=== PATIENT | male | born 1990 | race Caucasian/White ===

== ENCOUNTER 2018-12-02 15:14 | Observation (INO) ==
[2018-12-02] MEDS ORDERED: *HR* LORazepam 2 MG/ML VIAL IVP ONE (15:19)
[2018-12-02] MEDS ORDERED: *HR* LORazepam 2 MG/ML VIAL ONE (15:29)
[2018-12-02] MEDS ORDERED: *HR* LORazepam 2 MG/ML VIAL IVP STA (15:30)
[2018-12-02] MEDS ORDERED: 0.9 % Sodium Chloride 1,000 ML IVC ONE ×2 (15:31→15:35)
--- NOTE | 2018-12-02 15:49 | Emergency Department Note ---
Disposition Clinical Impression: Methamphetamine intoxication, Dehydration Disposition: Admitted As Inpatient Condition: Fair Time of Disposition: 19:21 General Adult HPI - General Chief complaint: ED Arrhythmia/Palpitations Stated complaint: ORAL Time Seen by Provider: 12/02/18 15:19 Source: patient, EMS Mode of arrival: EMS Limitations: no limitations Nursing Notes Reviewed: Yes Vital Signs Reviewed: Yes - History of Present Illness HPI Narrative: 28M that reports hx of methamphetamine use today and now has tachycardia and some shortness of breath. He also reports occasional marijuana use but none today. Pt presents with HR >160. Pain Scale: 0 - Related Data Home Medications Medication Instructions Recorded Confirmed No Known Home Drugs 10/29/14 10/29/14 Previous Rx's Medication Instructions Recorded Naproxen [Naprosyn] 500 mg PO BID PRN #20 tablet 10/29/14 TraMADol [Ultram] 50 mg PO Q4HR PRN #10 tablet 10/29/14 Azithromycin [Azithromycin 6-Tab 250 mg PO DAILY #6 tab 03/14/15 Pack] Azithromycin [Zithromax] 250 mg PO DAILY #5 tablet 04/22/16 Ondansetron [Zofran] 8 mg PO Q8HR PRN #10 tablet 04/22/16 Promethazine/Phenyleph/Codeine 10 ml PO Q4-6H PRN #120 ml 04/22/16 [Promethazine Vc-Codeine Syrup] GuaiFENesin ER [Mucinex] 600 mg PO BID PRN #20 tbbp.12hr 07/03/16 Ondansetron ODT [Zofran ODT] 4 mg SL Q4HR PRN #15 tab.rapdis 07/03/16 Allergies Allergy/AdvReac Type Severity Reaction Status Date / Time Cefaclor [From Ceclor] AdvReac Nausea Verified 12/25/17 02:05 Limitations: ROS unobtainable due to patients medical condition Past Medical History - Past Medical History Attestation: Yes The following information was validated with the patient. Medical history: Reports: no medical history Surgical history: Reports: other Psychiatric history: Reports: anxiety, bipolar, depression, schizophrenia - Social History Smoking Status: Former smoker Smokeless Tobacco Status: Yes Alcohol use: Reports: heavy Drug use: Reports: cocaine, marijuana, methamphetamine Physical Exam General: Appears agitated and anxious. Well developed, well nourished. Head: atraumatic, normocephalic. ENT: No conjunctival injection, no scleral icterus. PERRLA. EOMI. Oropharynx non- erythematous. mucous membranes dry. Neuro: unable to assess. Pulm: Lungs CTAB A/P. No wheezes, rales, ronchi. Cardio: Tachycardic. Chest not tender to palpation. Abd: Soft, non-distended. Normoactive bowel sounds. Non-tender to palpation. No guarding. Non rigid. Extremities: Radial pulses 2+ bridgette, dorsalis pedis/posterior tibialis 2+ bridgette. No LE edema. No cyanosis, clubbing. Skin: Both knees have superficial abrasions with some active bleeding, but appears mostly well controlled. Pt reports he fell on pavement today. Psych: Agitated but pleasant. - General Limitations: no limitations General appearance: alert, in no apparent distress Course Vital Signs Temperature 98.7 F 12/02/18 15:21 Pulse Rate 157 12/02/18 15:21 Respiratory Rate 22 12/02/18 15:21 Blood Pressure 171/144 12/02/18 15:21 O2 Sat by Pulse Oximetry 98 12/02/18 15:21 Temperature 98.7 F 12/02/18 15:21 Pulse Rate 81 12/02/18 17:07 Respiratory Rate 20 12/02/18 17:07 Blood Pressure 111/66 12/02/18 17:07 O2 Sat by Pulse Oximetry 97 12/02/18 17:07 Oxygen Delivery Oxygen Delivery Room Air Medical Decision Making - [facility] Narrative Medical decision making narrative: Pt presents after using methamphetamine with chest pressure and fast heart rate. We will administer 2mg IV Ativan. Pt continued to be tachycardic in the 130's, will administer 4mg of IV Ativan. 1606: Pt is sleeping comfortably, with HR 93 with BP 108/69. 1920: Pt still sleeping comfortable, and minimally responsive but protecting his own airway. Pt was admitted to the hospitalist, Dr. Soto who agreed to accept the patient to his service. Pt was stable at time of disposition. - Medical Records Medical records reviewed: Yes I reviewed the patient's medical records. - Lab Data Lab results reviewed: Yes I reviewed the patient's lab results. Result diagrams: 12/02/18 15:21 Lab Results 10/04/19 Range/Units 15:21 Sodium 139 (136-145) mEq/L Potassium 3.3 L (3.5-5.1) mEq/L Chloride 101 (98-107) mEq/L Carbon Dioxide 10 L* (23-29) mEq/L BUN 8 (6-20) mg/dL Creatinine 1.13 (0.70-1.30) mg/dL Est GFR ( Amer) > 60 (> 60) Est GFR (Non-Af Amer) > 60 (> 60) BUN/Creatinine Ratio 7 (6-26) Glucose 193 H (70-105) mg/dL Calculated Osmolality 292 (280-300) Calcium 10.2 (8.6-10.3) mg/dL Creatine Kinase 204 (30-223) Units/L Troponin I < 0.03 (< 0.04) ng/mL - Radiology Data Radiology results reviewed: Yes I reviewed the patient's radiology results. Chest X-Ray 12/02/18 15:59 IMPRESSION: Slight to mild pulmonary vascular congestion questioned. Low lung volumes. D/ / Andres Pepper MD / Andres Pepper MD Interpreting Provider: Andres Pepper MD - EKG Data EKG #1 EKG attestation: Yes I reviewed and interpreted this EKG. EKG results narrative: Heart rate 161, rhythm sinus tachycardia, axis normal. TN and QRS within normal limits but QTc prolonged at 559. The T waves in lead V2 are hyperacute. However the hyperacute T waves are isolated. No old EKG available for comparison. EKG #2 EKG attestation: Yes I reviewed and interpreted this EKG. EKG results narrative: HR 68, rhythm sinus, axis normal. All intervals within normal limits. There is very mild ST segment elevation in lead V2 which could be benign early rep olarization. Patient is not complaining of any chest pain. This EKG is much improved from earlier EKG.
[2018-12-02 16:28] LABS: BUN/Creatinine Ratio 7 (6-26); Blood Urea Nitrogen 8 mg/dL (6-20); Calcium 10.2 mg/dL (8.6-10.3); Carbon Dioxide 10 mEq/L (23-29); Chloride 101 mEq/L (98-107); Creatine Kinase 204 Units/L (30-223); Glucose 193 mg/dL (70-105); Osmolality,Calculated 292 (280-300); Potassium 3.3 mEq/L (3.5-5.1); Sodium 139 mEq/L (136-145); Troponin I < 0.03 ng/mL (< 0.04); eGFR For African Americans > 60 (> 60); eGFR For Non-African Americans > 60 (> 60)
--- NOTE | 2018-12-02 17:30 | Emergency Department Note ---
Disposition Clinical Impression: Methamphetamine intoxication, Dehydration Disposition: Admitted As Inpatient Condition: Fair Referrals: NONE,PCP [Primary Care Provider] - Forms: ED Satisfaction Letter Time of Disposition: 17:20 General Adult HPI - General Chief complaint: ED Arrhythmia/Palpitations Stated complaint: ORAL Time Seen by Provider: 12/02/18 15:19 Source: patient, EMS Mode of arrival: EMS Limitations: no limitations - History of Present Illness Pain Scale: 0 - Related Data Home Medications Medication Instructions Recorded Confirmed No Known Home Drugs 10/29/14 10/29/14 Previous Rx's Medication Instructions Recorded Naproxen [Naprosyn] 500 mg PO BID PRN #20 tablet 10/29/14 TraMADol [Ultram] 50 mg PO Q4HR PRN #10 tablet 10/29/14 Azithromycin [Azithromycin 6-Tab 250 mg PO DAILY #6 tab 03/14/15 Pack] Azithromycin [Zithromax] 250 mg PO DAILY #5 tablet 04/22/16 Ondansetron [Zofran] 8 mg PO Q8HR PRN #10 tablet 04/22/16 Promethazine/Phenyleph/Codeine 10 ml PO Q4-6H PRN #120 ml 04/22/16 [Promethazine Vc-Codeine Syrup] GuaiFENesin ER [Mucinex] 600 mg PO BID PRN #20 tbbp.12hr 07/03/16 Ondansetron ODT [Zofran ODT] 4 mg SL Q4HR PRN #15 tab.rapdis 07/03/16 Allergies Allergy/AdvReac Type Severity Reaction Status Date / Time Cefaclor [From Ceclor] AdvReac Nausea Verified 12/25/17 02:05 Past Medical History - Past Medical History Medical history: Reports: no medical history Surgical history: Reports: other Psychiatric history: Reports: anxiety, bipolar, depression, schizophrenia - Social History Smoking Status: Former smoker Smokeless Tobacco Status: Yes Alcohol use: Reports: heavy Drug use: Reports: cocaine, marijuana, methamphetamine Physical Exam - General Limitations: no limitations General appearance: alert, in no apparent distress Course Vital Signs Temperature 98.7 F 12/02/18 15:21 Pulse Rate 157 12/02/18 15:21 Respiratory Rate 22 12/02/18 15:21 Blood Pressure 171/144 12/02/18 15:21 O2 Sat by Pulse Oximetry 98 12/02/18 15:21 Temperature 98.7 F 12/02/18 15:21 Pulse Rate 81 12/02/18 17:07 Respiratory Rate 20 12/02/18 17:07 Blood Pressure 111/66 12/02/18 17:07 O2 Sat by Pulse Oximetry 97 12/02/18 17:07 Oxygen Delivery Oxygen Delivery Room Air Medical Decision Making - Lab Data Result diagrams: 12/02/18 15:21 Lab Results 12/02/18 Range/Units 15:21 Sodium 139 (136-145) mEq/L Potassium 3.3 L (3.5-5.1) mEq/L Chloride 101 (98-107) mEq/L Carbon Dioxide 10 L* (23-29) mEq/L BUN 8 (6-20) mg/dL Creatinine 1.13 (0.70-1.30) mg/dL Est GFR ( Amer) > 60 (> 60) Est GFR (Non-Af Amer) > 60 (> 60) BUN/Creatinine Ratio 7 (6-26) Glucose 193 H (70-105) mg/dL Calculated Osmolality 292 (280-300) Calcium 10.2 (8.6-10.3) mg/dL Creatine Kinase 204 (30-223) Units/L Troponin I < 0.03 (< 0.04) ng/mL Attestation Statement - Attestation Attestation: I examined this patient and my medical decision-making was reviewed with the Resident Physician. I agree with the documented findings, disposition and treatment plan as described except to the extent set forth below. Patient has reportedly been on a 4 day methamphetamine binge. Presents agitated, tachycardic, short of breath. I was present for the resident's EKG interpretation. He had sinus tachycardia in the 160s. He was treated with fluids and Ativan while in the emergency department. His heart rate did come down. His CO2 on his basic metabolic panel was 10. He will be admitted for observation and continued hydration. CPK was in the 200s. Was accepted the patient, requested a urine drug screen, which was added.
[2018-12-02] MEDS ORDERED: Naloxone 0.4 MG/ML INJ IVP PRN (17:31)
--- NOTE | 2018-12-02 18:08 | Internal Med History&Physical ---
Date of Encounter: 12/02/18 Time of Encounter: 18:00 Internal Medicine - H&P: HPI Chief complaint: Methamphetamine abuse, tachycardia Admitted From: Emergency Dept Plans for Post Hospital Care: Home History of present illness: Mr. Mccormick is a 28 year old male patient presented to the ER with some complaints of shortness of breath reporting that he had been on a methamphetamine binge for the past 4 days. Presently patient is very somnolent and difficult to awake. He did receive Ativan in the ER. History has therefore been obtained from ED records. Patient apparently reported that he had used methamphetamine today and also has a history of schizophrenia. He also reported occasional marijuana use. In the ER, he was noted to be very tachycardic with heart rate in the 160s. He received Ativan and IV fluids and his heart rate has since improved. Past Med Surg Social Fam HX - Past Medical History Medical history: no medical history Psychiatric history: anxiety, bipolar, depression, schizophrenia - Past Surgical History Surgical History: other Additional surgical history: Dental surgery - Social History Smoking Status: Former smoker Smokeless Tobacco Status: Yes Alcohol use: heavy Drug use: cocaine, marijuana, methamphetamine - Additional Family History Additional family history: Unable to obtain at this time Internal Medicine - H&P: Meds Naproxen [Naprosyn] 500 mg PO BID PRN #20 tablet 10/29/14 [Rx] No Known Home Drugs 10/29/14 [History] TraMADol [Ultram] 50 mg PO Q4HR PRN #10 tablet 10/29/14 [Rx] Azithromycin [Azithromycin 6-Tab Pack] 250 mg PO DAILY #6 tab 03/14/15 [Rx] Azithromycin [Zithromax] 250 mg PO DAILY #5 tablet 04/22/16 [Rx] Ondansetron [Zofran] 8 mg PO Q8HR PRN #10 tablet 04/22/16 [Rx] Promethazine/Phenyleph/Codeine [Promethazine Vc-Codeine Syrup] 10 ml PO Q4-6H PRN #120 ml 04/22/16 [Rx] GuaiFENesin ER [Mucinex] 600 mg PO BID PRN #20 tbbp.12hr 07/03/16 [Rx] Ondansetron ODT [Zofran ODT] 4 mg SL Q4HR PRN #15 tab.rapdis 07/03/16 [Rx] Allergy/AdvReac Type Severity Reaction Status Date / Time Cefaclor [From Ceclor] AdvReac Nausea Verified 12/25/17 02:05 ROS unobtainable: due to mental status (Patient very somnolent and difficult to awake) All Systems PM: A 10-system review of systems was performed and is negative for pertinent findings except as documented above in the HPI. - Constitutional Vitals: Temp Pulse Resp BP Pulse Ox 98.7 F 81 20 111/66 97 12/02/18 15:21 12/02/18 17:07 12/02/18 17:07 12/02/18 17:07 12/02/18 17:07 Exam: General: Patient is somnolent, difficult to awake Respiratory: Good respiratory effort. Normal breath sounds. No wheezing or crackles. Cardiovascular: Regular rate and rhythm. s1 and s2 normal No clicks, rubs, gallops, or murmurs. No pedal edema Abdomen: Abdomen is soft, nontender. Bowel sounds are present Musculoskeletal: Spontaneously moving all extremities Skin: Abrasion wounds on bilateral knees Neuro: Somnolent. Neuro examination unable to be completed at this time as patient difficult to awake Psych: Unable to assess at this time Internal Med - H&P Results - Labs CBC & Chem 7: 12/02/18 15:21 Labs: BMP 12/02/18 15:21 Sodium 139 Potassium 3.3 L Chloride 101 Carbon Dioxide 10 L* BUN 8 Creatinine 1.13 Glucose 193 H Calcium 10.2 Cardiac Enzymes 12/02/18 Range/Units 15:21 Troponin I < 0.03 (< 0.04) ng/mL - Impressions ITS Impressions Chest X-Ray 12/02/18 15:59 IMPRESSION: Slight to mild pulmonary vascular congestion questioned. Low lung volumes. D/ / Andres Pepper MD / Andres Pepper MD Interpreting Provider: Andres Pepper MD - Assessment and Plan (1) Methamphetamine intoxication Current Visit: Yes Status: Acute (2) Metabolic acidosis Current Visit: Yes Status: Acute - Summary of Assessment and Plan Summary of Assessment and Plan: Methamphetamine intoxication: Patient reportedly on methamphetamine binge over the past 4 days. Received 6 mg of Ativan prior to my arrival in the ER and has been somnolent since then. Will monitor her neuro function. IV hydration. Monitor urine output. CPK levels are normal. Will trend. knockup worker consult. Metabolic acidosis: Likely due to dehydration and drug abuse. Will monitor renal function. IV hydration. Moderate risk for complications. - Time Spent With Patient Total time spent is greater than 50% in coordination of care (as documented) at patient's floor/unit and/or counseling patient:
[2018-12-02] MEDS: 0.9 % Sodium Chloride 1,000 ML IVC ONE ×2 (19:18→20:49)
[2018-12-02] MEDS: Ringers Solution, Lactated 1,000 ML IVC SCH (20:49)
[2018-12-03 04:41] LABS: Basophils # 0.1 K/mcL (0.0-0.2); Basophils % 0.8 %; Eosinophils # 0.9 K/mcL (0.0-0.6); Eosinophils % 9.5 %; Hematocrit 41.6 % (37.5-50.1); Hemoglobin 13.5 g/dL (12.9-16.9); Immature Granulocytes % 0.3 % (0-4); Lymphocytes # 2.3 K/mcL (0.6-4.6); Lymphocytes % 24.2 %; Mean Corpuscular HGB Conc 32.5 g/dL (31.6-35.5); Mean Corpuscular Hemoglobin 28.8 pg (28.0-33.3); Mean Corpuscular Volume 88.9 fL (83.0-100.0); Mean Platelet Volume 9.8 fL (9.4-12.4); Monocytes # 0.8 K/mcL (0.0-1.3); Monocytes % 8.4 %; Neutrophils # 5.3 K/mcL (1.6-8.9); Platelet Count 241 K/mcL (140-400); Red Blood Count 4.68 M/mcL (4.19-5.50); Red Cell Distribution Width 13.4 % (11.5-14.5); Segmented Neutrophils % 56.8 %; White Blood Count 9.3 K/mcL (4.3-11.1)
[2018-12-03] MEDS: Ringers Solution, Lactated 1,000 ML IVC SCH (04:53)
[2018-12-03 05:00] LABS: BUN/Creatinine Ratio 8 (6-26); Blood Urea Nitrogen 6 mg/dL (6-20); Calcium 8.7 mg/dL (8.6-10.3); Carbon Dioxide 21 mEq/L (23-29); Chloride 111 mEq/L (98-107); Glucose 110 mg/dL (70-105); Osmolality,Calculated 284 (280-300); Potassium 3.5 mEq/L (3.5-5.1); Sodium 138 mEq/L (136-145); eGFR For African Americans > 60 (> 60); eGFR For Non-African Americans > 60 (> 60)
[2018-12-03] MEDS ORDERED: *HR* LORazepam 2 MG/ML VIAL IVP STA (09:13)
--- NOTE | 2018-12-03 16:38 | Discharge Summary ---
Date of Encounter: 12/03/18 Time of Encounter: 16:36 - Discharge Diagnosis (1) Methamphetamine intoxication Priority: Primary Status: Acute (2) Metabolic acidosis Priority: Secondary Status: Acute Hospital course: Mr. Mccormick is a 28 year old male who presented with transient breath and palpitations after heavy use of amphetamines. His admission heart rate was in the 160s but he has remained under 80 overnight and currently reports no symptoms. He had significant metabolic acidosis at presentation which has also improved. Patient is being discharged after counseling to quit the use of illicit drugs and to stay hydrated. We will also arrange a PCP appointment for him. Discharge discussed with: patient, nurse - Time Spent with Patient Total time spent providing and/or coordinating discharge services: Time spent: Less than 30 minutes (25 minutes) - Discharge Medications Prescriptions: No Action No Known Home Drugs 1 each .ROUTE AD each Home Medications: No Known Home Drugs 12/03/18 [History] Allergies/Adverse Reactions: Allergy/AdvReac Type Severity Reaction Status Date / Time Cefaclor [From Ceclor] AdvReac See Verified 12/03/18 13:25 Comments Date of admission: 12/02/18 18:51 Primary care physician: PCP NONE - Constitutional Vitals: Temp Pulse Resp BP Pulse Ox 36.6 C 74 16 129/85 99 12/03/18 12:00 12/03/18 12:00 12/03/18 12:00 12/03/18 12:00 12/03/18 12:00 Exam: GENERAL: Not in distress. Alert and Oriented HEENT: EOMI, PERRLA MOUTH: Moist oral mucosa NECK:No JVD, No lymph nodes. CHEST AND LUNGS: Normal breath sounds, no wheezes or crackles HEART: S1 and S2 normal, no murmurs ABDOMEN: Soft, nontender, no organomegaly SKIN: Normal color, no rashes, no lesions EXTREMITIES: No deformity, no edema, no tenderness, no joint swelling or clubbing NEUROLOGICAL: Normal cognition, normal motor and sensory exam. - Patient Status Disposition: Home, Self-Care Condition: Good Functional capacity at discharge: independent ambulation Overall status at discharge: patient is back to baseline - Discharge Instructions Follow Up With: NONE,PCP [Primary Care Provider] - - Diet and Activity Activity: resume usual activities as tolerated Diet: advance to your usual diet
[2018-12-03 16:39] VITALS: BP 137/83
--- NOTE | 2018-12-05 06:41 | Electrocardiograph Report ---
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
--- NOTE | 2018-12-06 15:57 | Electrocardiograph Report ---
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
== END 2018-12-03 19:20 | disposition home or self-care (01) ==
LOC: EMEROOARM 15:14 → 3BNU 15:14 → SUATTDRO 18:51 → 3BNU 19:43
PROVIDERS: ADMIT Internal Medicine; ATTEND Internal Medicine

== ENCOUNTER 2020-05-19 22:42 | Observation (INO) ==
[2020-05-19] MEDS ORDERED: 0.9 % Sodium Chloride 1,000 ML ONE (22:45)
[2020-05-19] MEDS: 0.9 % Sodium Chloride 1,000 ML IVC SCH (23:15)
[2020-05-19 23:21] LABS: Basophils # 0.1 K/mcL (0.0-0.2); Basophils % 0.9 %; Eosinophils # 0.4 K/mcL (0.0-0.6); Eosinophils % 4.3 %; Hematocrit 46.7 % (37.5-50.1); Hemoglobin 15.5 g/dL (12.9-16.9); Immature Granulocytes % 0.4 % (0-4); Lymphocytes # 1.9 K/mcL (0.6-4.6); Lymphocytes % 20.3 %; Mean Corpuscular HGB Conc 33.2 g/dL (31.6-35.5); Mean Corpuscular Hemoglobin 27.8 pg (28.0-33.3); Mean Corpuscular Volume 83.8 fL (83.0-100.0); Mean Platelet Volume 9.4 fL (9.4-12.4); Monocytes # 0.4 K/mcL (0.0-1.3); Monocytes % 4.8 %; Neutrophils # 6.4 K/mcL (1.6-8.9); Platelet Count 250 K/mcL (140-400); Red Blood Count 5.57 M/mcL (4.19-5.50); Red Cell Distribution Width 13.1 % (11.5-14.5); Segmented Neutrophils % 69.3 %; White Blood Count 9.2 K/mcL (4.3-11.1)
[2020-05-19 23:42] LABS: Alanine Aminotransferase 88 Units/L (7-52); Albumin 4.7 g/dL (3.5-5.7); Albumin/Globulin Ratio 1.6 (1.1-2.2); Alkaline Phosphatase 71 Units/L (34-104); Aspartate Amino Transferase 42 Units/L (13-39); BUN/Creatinine Ratio 11 (6-26); Bilirubin,Direct 0.1 mg/dL (0.0-0.2); Bilirubin,Indirect 0.3 mg/dL (0.0-1.0); Bilirubin,Total 0.4 mg/dL (0.3-1.0); Blood Urea Nitrogen 11 mg/dL (6-20); Calcium 9.7 mg/dL (8.6-10.3); Carbon Dioxide 18 mEq/L (23-29); Chloride 105 mEq/L (98-107); Glucose 123 mg/dL (70-105); Lipase 27 Units/L (11-82); Osmolality,Calculated 287 (280-300); Potassium 3.2 mEq/L (3.5-5.1); Sodium 138 mEq/L (136-145); Total Protein 7.7 g/dL (6.4-8.9); eGFR For African Americans > 60 (> 60); eGFR For Non-African Americans > 60 (> 60)
[2020-05-19 23:43] LABS: Troponin I < 0.03 ng/mL (< 0.04)
[2020-05-20] MEDS ORDERED: *HR* LORazepam 2 MG/ML VIAL IVP ONE (00:14)
[2020-05-20] MEDS ORDERED: *HR* LORazepam 2 MG/ML VIAL IVP PRN ×3 (00:30)
[2020-05-20] MEDS ORDERED: Acetaminophen 325 MG TABLET PO PRN (00:30)
[2020-05-20] MEDS ORDERED: Naloxone 0.4 MG/ML INJ IVP PRN (00:30)
[2020-05-20] MEDS: 0.9 % Sodium Chloride 1,000 ML IVC SCH (00:35)
[2020-05-20] MEDS: Ringers Solution, Lactated 1,000 ML IVC SCH ×3 (03:14→18:20)
[2020-05-20 04:52] LABS: INR 1.2; Prothrombin Time 13.9 Seconds (9.4-12.1)
[2020-05-20 05:04] LABS: Magnesium 1.9 mg/dL (1.6-2.6); Phosphorous 3.1 mg/dL (2.7-4.5)
[2020-05-20 05:43] LABS: Protein/Creatinine Ratio,Urine 0.06 mg/mg (0.00-0.20); Sodium, Urine 60.9 mEq/L
[2020-05-20 06:59] LABS: BUN/Creatinine Ratio 13 (6-26); Blood Urea Nitrogen 11 mg/dL (6-20); Carbon Dioxide 22 mEq/L (23-29); Chloride 110 mEq/L (98-107); Glucose 100 mg/dL (70-105); Osmolality,Calculated 285 (280-300); Potassium 4.2 mEq/L (3.5-5.1); Sodium 138 mEq/L (136-145); eGFR For African Americans > 60 (> 60); eGFR For Non-African Americans > 60 (> 60)
[2020-05-20] MEDS: *HR* Enoxaparin 40 MG/0.4 ML SYRINGE SQ SCH (07:23)
[2020-05-20 09:15] LABS: Bilirubin,Urine Negative (Negative); Blood,Urine Negative (Negative); Clarity,Urine Clear (Clear); Color,Urine Yellow (Yellow); Glucose,Urine (UA) Normal (Normal); Ketones,Urine Negative (Negative); Leukocyte Esterase,Urine Negative (Negative); Nitrite,Urine Negative (Negative); Protein,Urine Trace mg/dL (Neg-Trace); Specific Gravity,Urine 1.029 (1.010-1.025); Urobilinogen,Urine Normal (Normal)
[2020-05-20 09:22] LABS: Amphetamine Screen,Urine Negative ng/mL (Cutoff=1000); Barbiturate Screen,Urine Negative ng/mL (Cutoff=200); Benzodiazepines Screen,Urine Negative ng/mL (Cutoff=200); Cannabinoid Screen,Urine Negative ng/mL (Cutoff = 50); Cocaine Screen,Urine Negative ng/mL (Cutoff= 300); Opiate Screen,Urine Negative ng/mL (Cutoff=300); Phencyclidine Screen,Urine Negative ng/mL (Cutoff=25)
[2020-05-20] MEDS ORDERED: Thiamine (B-1) 100 MG, Folic Acid 1 MG, MVI, adult with vitamin K 10 ML in 0.9 % Sodi... IVPB SCH (18:00)
[2020-05-21] MEDS: Ringers Solution, Lactated 1,000 ML IVC SCH ×2 (03:15→10:58)
[2020-05-21 05:19] LABS: Hematocrit 43.9 % (37.5-50.1); Mean Corpuscular HGB Conc 31.9 g/dL (31.6-35.5); Mean Corpuscular Hemoglobin 27.6 pg (28.0-33.3); Mean Corpuscular Volume 86.6 fL (83.0-100.0); Mean Platelet Volume 9.9 fL (9.4-12.4); Platelet Count 244 K/mcL (140-400); Red Blood Count 5.07 M/mcL (4.19-5.50); Red Cell Distribution Width 13.6 % (11.5-14.5); White Blood Count 7.8 K/mcL (4.3-11.1)
[2020-05-21] MEDS: *HR* Enoxaparin 40 MG/0.4 ML SYRINGE SQ SCH (05:23)
[2020-05-21 05:42] LABS: Alanine Aminotransferase 56 Units/L (7-52); Albumin 4.1 g/dL (3.5-5.7); Albumin/Globulin Ratio 1.6 (1.1-2.2); Alkaline Phosphatase 60 Units/L (34-104); Aspartate Amino Transferase 22 Units/L (13-39); BUN/Creatinine Ratio 11 (6-26); Bilirubin,Total 0.4 mg/dL (0.3-1.0); Blood Urea Nitrogen 9 mg/dL (6-20); Calcium 8.9 mg/dL (8.6-10.3); Carbon Dioxide 22 mEq/L (23-29); Chloride 110 mEq/L (98-107); Globulin 2.5 g/dL (2.4-3.5); Glucose 91 mg/dL (70-105); Magnesium 2.1 mg/dL (1.6-2.6); Osmolality,Calculated 290 (280-300); Phosphorous 3.2 mg/dL (2.7-4.5); Potassium 3.6 mEq/L (3.5-5.1); Sodium 141 mEq/L (136-145); Total Protein 6.6 g/dL (6.4-8.9); eGFR For African Americans > 60 (> 60); eGFR For Non-African Americans > 60 (> 60)
[2020-05-21 07:40] VITALS: BP 100/54
[2020-05-21] MEDS ORDERED: Lumateperone Tosylate [Caplyta] 42 MG Capsule PO SCH (09:00)
[2020-05-21] MEDS ORDERED: hydrOXYzine pamoate 25 MG CAPSULE PO PRN (09:00)
[2020-05-21] MEDS ORDERED: Divalproex (24 HR) 500 MG TABLET PO SCH (09:00)
== END 2020-05-21 15:38 | disposition home or self-care (01) ==
LOC: 3ANU 22:42 → EMEROOARM 22:42 → SUATTDRO 05-20 01:22 → 3ANU 05-20 02:29
PROVIDERS: ADMIT Family Medicine; ATTEND Internal Medicine